=== PATIENT | female | born 1970 ===

== ENCOUNTER 2022-08-20 14:57 | Emergency (ER) | payer MEDICAID, SELFPAY ==
[2022-08-20 15:00] VITALS: BP 132/70; PULSE 90; RESP 18; TEMP 36.7; O2SAT 98; BMI 33.3
--- NOTE | 2022-08-20 15:04 | ED.GENADULT ---
HPI - General Adult General Chief complaint: Back Pain/Injury Stated complaint: Back Pain S/P Injury 08/20/22 Source: patient, RN notes reviewed and old records reviewed Mode of arrival: ambulatory Limitations: no limitations History of Present Illness HPI narrative: 52-year-old female past medical history significant for chronic back pain, spondylolisthesis presents for evaluation of lower back pain. Her pain started 2 days ago when she was ?moving boxes around the house. Her pain is 10/10 to the lower back pain It does not radiate. Denies any numbness, tingling No difficulties bones about some No weakness to lower extremities There was no trauma to back Related Data Previous Rx's Medication Instructions Recorded methocarbamol 750 mg tablet 750 mg PO TID muscle spasms #20 08/20/22 tabs tramadol 50 mg tablet 50 mg PO TID PRN severe pain 08/20/22 (scale score 7-10) #12 tabs Allergies Allergy/AdvReac Type Severity Reaction Status Date / Time No Known Allergies Allergy Verified 08/20/22 15:03 Review of Systems Constitutional: Constitutional: Reports as per HPI, Denies chills, Denies fatigue, Denies fever(s) and Denies headache(s) ENT: Denies headache(s) Cardiovascular: Cardiovascular: Denies chest pain and Denies dyspnea Respiratory: Respiratory: Denies cough and Denies dyspnea Gastrointestinal: Gastrointestinal: Denies abdominal pain, Denies constipation and Denies vomiting Genitourinary: Genitourinary: Denies dysuria Musculoskeletal: Musculoskeletal: Reports back pain Neurologic: Denies headache(s) and Denies focal weakness Endocrine: Endocrine: Denies fatigue Physical Exam ED Vital Signs: Vital Signs - 24 hr 08/20/22 15:00 Temperature 98.0 F Pulse Rate 90 Respiratory Rate 18 Blood Pressure 132/70 Pulse Oximetry 98 Oxygen Delivery Method Room Air BMI result Body Mass Index 33.3 Const General: healthy appearing, comfortable, no acute distress, alert and awake Nutritional Appearance: well nourished Orientation/consciousness: patient oriented x3 HENMT Head: Yes normocephalic and Yes atraumatic Throat: Yes posterior oropharynx normal Eyes Eyelids: Yes eyelids normal Conjunctivae: conjunctivae normal Sclerae: sclerae normal Corneas: corneas normal Pupils: Equal, round and reactive pupils present EOM: EOMs intact bilaterally Neck Neck: Yes full ROM Resp Effort & Inspection: normal respiratory effort, able to speak in complete sentences, no audible wheezes and not labored Auscultation: clear to auscultation bilaterally Cardio Rate: regular rate Rhythm: regular rhythm GI Inspection: No distended Palpation (GI): Soft to palpation, not firm, nontender, no guarding and not rigid Auscultation: normoactive bowel sounds Back/Spine/Pelvis Other: Tenderness across the lumbar paraspinous region without any focal step-offs or deformities. Skin General skin exam: no rashes or lesions noted and elasticity normal Neuro General: patient oriented x3 Cranial nerves: Yes Equal, round and reactive pupils present and Yes Bilaterally intact EOM present Cognition (Neuro): normal cognition Gait exam (Neuro): Normal gait present Motor exam (neuro): 5/5 motor strength present throughout Extrem Other: Moving all extremities well without any obvious deformities Medical Decision Making Medical Decision Making MDM Narrative: [age] year female presents for evaluation of acute on chronic back pain after moving around the house. No trauma, no warning signs for cauda equina syndrome. Will medicate with Toradol IM. Patient be discharged with methocarbamol and tramadol Differential Diagnosis Acute on chronic back pain Muscle spasms Radiculopathy Sciatica Discharge Plan Discharge Clinical Impression: Acute exacerbation of chronic low back pain Patient Disposition: Home, Self-Care Instructions: Back Pain (ED) Additional Instructions: Use ibuprofen/Tylenol for pain. You may use tramadol for more severe or breakthrough pain. This may make you sleepy, did not drink alcohol or drive after taking Use methocarbamol as needed for muscle spasms Prescriptions: New tramadol 50 mg tablet 50 mg PO TID PRN (Reason: severe pain (scale score 7-10)) Qty: 12 0RF methocarbamol 750 mg tablet 750 mg PO TID Qty: 20 0RF
[2022-08-20] MEDS: Ketorolac Tromethamine 30 MG/ML VIAL IM (15:08)
== END 2022-08-20 15:30 | disposition home or self-care (01) ==
LOC: HO.ED 15:15
PROVIDERS: Emergency Provider Emergency Medicine Emergency Medical Services
DX: M54.42 Lumbago with sciatica, left side (principal); M54.41 Lumbago with sciatica, right side
CPT/HCPCS: 96372; 99283; 99284; J1885

== ENCOUNTER 2022-09-05 13:58 | Emergency (ER) | payer MEDICAID, SELFPAY ==
--- NOTE | 2022-09-05 14:03 | ED.BACK ---
HPI - Back Pain/Injury General Chief Complaint: Back Pain/Injury Stated Complaint: back pain for 2 weeks Time Seen by Provider: 09/05/22 14:08 Source: patient, RN notes reviewed and old records reviewed Mode of arrival: ambulatory History of Present Illness HPI Narrative: 52-year-old female with a past medical history of chronic back pain, spondylolisthesis, presenting to the ED complaining of acute on chronic bilateral low back pain x few weeks. Admits symptoms started after moving furniture in home. Reports was seen and treated in our ED recently, admits medications prescribed provided no relief. Denies direct injury/trauma or fall, numbness, tingling, weakness, urinary incontinence/retention, fever, hematuria MD elicited complaint: back pain Related Data Previous Rx's Medication Instructions Recorded methocarbamol 750 mg tablet 750 mg PO TID muscle spasms #20 08/20/22 tabs tramadol 50 mg tablet 50 mg PO TID PRN severe pain 08/20/22 (scale score 7-10) #12 tabs acetaminophen 500 mg tablet 500 mg PO Q6H PRN fever or pain 09/05/22 (Tylenol Extra Strength) #14 tabs cyclobenzaprine 10 mg tablet 10 mg PO TID PRN muscle spasm #10 09/05/22 tabs lidocaine 5 % topical patch 1 patch topical DAILY PRN pain #30 09/05/22 (Lidoderm) ea naproxen 500 mg tablet 500 mg PO BID PRN pain 10 days #20 09/05/22 tabs Allergies Allergy/AdvReac Type Severity Reaction Status Date / Time No Known Allergies Allergy Verified 09/05/22 14:05 Review of Systems Review of Systems: Constitutional: No Fever, No Chills ENT/Mouth: No Ear Pain, No Nasal Congestion, No sore throat, No Rhinorrhea, No Swallowing Difficulty Cardiovascular: No Chest Pain, No SOB Respiratory: No Cough, No Sputum, No Wheezing Gastrointestinal: No Nausea, No Vomiting, No Diarrhea, No Constipation, No Abdominal pain Genitourinary: No Dysuria, No Urinary Frequency, No Hematuria, No Urinary Incontinence/retention, No Flank Pain Musculoskeletal: + joint pain, No Myalgias, No Joint Swelling Skin: No Skin Lesions, No rash Neuro: No Weakness, No Numbness, No Paresthesias Yes all other systems are reviewed and are negative Constitutional: Constitutional: Reports as per HPI [facility] Past Medical History Attestation statement: The following information was validated with the patient. Source: old records reviewed Physical Exam Vital Signs: Vital Signs: Last Vital Signs Temp 98 F 09/05/22 14:05 Pulse 81 09/05/22 14:05 Resp 19 09/05/22 14:05 BP 131/77 09/05/22 14:05 Pulse Ox 99 09/05/22 14:05 BMI result Body Mass Index 34.3 Const: General: cooperative, healthy appearing and no acute distress Orientation/consciousness: patient oriented x3 Limitations: no limitations HEENT: Head: Yes normal to inspection and Yes atraumatic Ears: hearing grossly normal bilaterally General nose exam: Normal external nose present Face and sinus: Yes normal facial exam Eyes: General: appearance normal, both eyes and all related structures EOM: EOMs intact bilaterally Neck: Neck: Yes normal visual inspection and Yes no meningeal signs Resp: Effort & Inspection: normal respiratory effort and no respiratory distress Cardio: Rate: regular rate Heart sounds: S1 normal heart sound present and S2 normal heart sound present GI: Inspection: Yes normal to inspection Palpation (GI): Soft to palpation, nontender, no guarding and not rigid : General: Yes no CVA tenderness Back/Spine/Pelvis: Other: No midline cervical/thoracic/lumbar spinous tenderness/step-off or deformity. + bilateral lumbar MSK tenderness to palpation reproducing subjective complaint. No erythema/ecchymosis Back: no CVA tenderness Skin: Rashes: no rashes Wounds: no wounds Neuro: Other: Strength intact throughout. No saddle anesthesia. Sensation intact to light touch. Neurovascular intact distally General: patient oriented x3, gait normal, tone normal, moves all extremities, no meningeal signs and no focal motor deficits Gait exam (Neuro): Normal gait present Motor exam (neuro): 5/5 motor strength present throughout Extrem: General: Yes normal to inspection Medical Decision Making Medical Decision Making MDM Narrative: 52-year-old female with a past medical history of chronic back pain, spondylolisthesis, presenting to the ED complaining of acute on chronic bilateral low back pain x few weeks. On exam vital signs stable, NAD, nontoxic appearing, no midline spinous tenderness, bilateral MSK lumbar tenderness elicited as above. No red flag symptoms or saddle anesthesia. Ambulating with steady gait. Concern for MSK pain/spasming vs acute on chronic back pain vs radiculopathy. Low suspicion for cauda equina, cord compression, epidural abscess, renal stone/pyelo Patient requesting something stronger than was prescribed last time Plan: IM Toradol, lido patch, p.o. morphine in the ED Will refer pain patient to home health billing specialist, physical therapy and pain management Results discussed with patient including worrisome signs and symptoms and strict return precautions, and when to return to the emergency department. They verbalized understanding and feel safe for discharge at this time. Differential Diagnosis Differential Diagnoses: The differential diagnosis associated with the presentation includes As above Lab Data MDM Lab Attestation statement: I reviewed the patient's lab results. Radiology Impression Discussion of test interpretation with radiology: I have reviewed the radiologist's reading. External Record Review External record reviewed: Inpatient record, Office record, Outpatient record, Prior outpatient labs, Prior outpatient radiology, Primary care record and Outside ED record Tests considered The following testing was considered but not selected: As above Discharge Plan Discharge Clinical Impression: Acute lumbar back pain Patient Disposition: Home, Self-Care Instructions: Acute Low Back Pain (ED), Chronic Back Pain (DC) Additional Instructions: [facility] [address] [place] [id number] Please follow-up with a home health billing specialist and your doctor Your pain is likely musculoskeletal Flexeril is a muscle relaxer, take at night as it makes you drowsy, do not drive, drink alcohol, or operate machinery while taking it Naproxen as an anti-inflammatory / pain medication, take with food Lidoderm patches are numbing patches, apply to painful area In addition take Tylenol at home If symptoms persist or worsen, pain becomes unbearable, you developed urinary retention or incontinence, or weakness return to the ED Prescriptions: New cyclobenzaprine 10 mg tablet 10 mg PO TID PRN (Reason: muscle spasm) Qty: 10 0RF acetaminophen [Tylenol Extra Strength] 500 mg tablet 500 mg PO Q6H PRN (Reason: fever or pain) Qty: 14 0RF lidocaine [Lidoderm] 5 % adhesive patch,medicated 1 patch topical DAILY MDD remove after 12 hours PRN (Reason: pain) Qty: 30 0RF Rx Instructions: leave on most painful area for up to 12 hrs naproxen 500 mg tablet 500 mg PO BID PRN (Reason: pain) 10 Days Qty: 20 0RF No Action tramadol 50 mg tablet 50 mg PO TID PRN (Reason: severe pain (scale score 7-10)) Qty: 12 0RF methocarbamol 750 mg tablet 750 mg PO TID Qty: 20 0RF [place] [facility] [place] [facility] [place] Physician,Unknown J [Primary Care Provider] - Print Language: Danish
[2022-09-05 14:05] VITALS: BP 131/77; PULSE 81; RESP 19; TEMP 36.6; O2SAT 99; BMI 34.3
[2022-09-05] MEDS: Morphine Sulfate Immed Release 15 MG TABLET PO (14:53)
[2022-09-05] MEDS: Ketorolac Tromethamine 30 MG/ML VIAL IM (14:57)
[2022-09-05] MEDS: Lidocaine 4 % Patch ADH..PATCH 1 PATCH TRANSDERMA (14:58)
== END 2022-09-05 15:20 | disposition home or self-care (01) ==
PROVIDERS: Emergency Provider Emergency Medicine
DX: M54.50 Low back pain, unspecified (principal); Z79.899 Other long term (current) drug therapy
CPT/HCPCS: 96372; 99283; 99284; J1885

== ENCOUNTER 2023-08-08 15:50 | Emergency (ER) | payer OTHER, SELFPAY ==
[2023-08-08 15:53] VITALS: BP 124/80; PULSE 99; RESP 20; TEMP 36.3; O2SAT 98; BMI 34.3
--- NOTE | 2023-08-08 16:04 | ED.GENADULT ---
HPI - General Adult General Chief complaint: Skin/Abscess/Foreign Body Stated complaint: body rash Time Seen by Provider: 08/08/23 16:03 Source: patient Mode of arrival: ambulatory Limitations: no limitations History of Present Illness HPI narrative: 52 yold female presents to the ED for itchy rash legs, back, and abdomen for the past 2 weeks. patient denies any swelling of lips, tongue, face, eyes, or uvula. Patient denies any new allergies. Patient denies any fever, chills, chest pain, or shortness of breath. Related Data Previous Rx's ?Medication ?Instructions ?Recorded methocarbamol 750 mg tablet 750 mg PO TID muscle spasms #20 08/20/22 tabs tramadol 50 mg tablet 50 mg PO TID PRN severe pain 08/20/22 (scale score 7-10) #12 tabs acetaminophen 500 mg tablet 500 mg PO Q6H PRN fever or pain 09/05/22 (Tylenol Extra Strength) #14 tabs cyclobenzaprine 10 mg tablet 10 mg PO TID PRN muscle spasm #10 09/05/22 tabs lidocaine 5 % topical patch 1 patch topical DAILY PRN pain #30 09/05/22 (Lidoderm) ea morphine 15 mg immediate release 15 mg PO Q8H PRN pain (scale score 09/05/22 tablet 7-10) 3 days #9 tabs naproxen 500 mg tablet 500 mg PO BID PRN pain 10 days #20 09/05/22 tabs clotrimazole-betamethasone 1 1 appl topical BID 2 weeks #45 08/08/23 %-0.05 % topical cream grams diphenhydramine HCl 25 mg capsule 25 mg PO TID PRN itching 7 days 08/08/23 (Benadryl) #21 caps prednisone 20 mg tablet 40 mg (2 x 20 mg) PO DAILY 5 days 08/08/23 #10 tabs Allergies Allergy/AdvReac Type Severity Reaction Status Date / Time No Known Allergies Allergy Verified 08/08/23 15:57 Review of Systems Review of Systems: ithcing rash Yes all other systems are reviewed and are negative [facility] Social History Social History Advance Directives: No Advance Directives Information Provided: No Physical Exam ED Vital Signs: Vital Signs - 24 hr 08/08/23 15:53 Temperature 97.4 F Pulse Rate 99 Respiratory Rate 20 Blood Pressure 124/80 Pulse Oximetry 98 Oxygen Delivery Method Room Air BMI result Body Mass Index 34.3 Const General: cooperative, healthy appearing, comfortable, no acute distress, well developed, alert and awake Orientation/consciousness: oriented to person, oriented to place, oriented to time and patient oriented x3 HENMT Other: negative for swelling of lips, tongue, face, or uvula. Head: Yes normal to inspection, Yes No palpable skull fracture present, Yes normocephalic and Yes atraumatic Eyes General: appearance normal, both eyes and all related structures Neck Neck: Yes normal visual inspection, Yes full ROM, Yes no lymphadenopathy, Yes no meningeal signs, Yes trachea midline, Yes supple, No anterior neck swelling and No tender Chest Chest palpation & inspection: normal inspection of the chest and normal palpation of entire chest wall Resp Effort & Inspection: normal respiratory effort and able to speak in complete sentences Auscultation: clear to auscultation bilaterally Cardio Jugular venous distension: no JVD Heart sounds: S1 normal heart sound present and S2 normal heart sound present GI Other: circular ithcy rash on abdomen Back/Spine/Pelvis Other: circular itchy rash Skin Other: circular itchy rash. General skin exam: elasticity normal and turgor normal Neuro General: oriented to person, oriented to place, oriented to time, patient oriented x3, gait normal, tone normal, moves all extremities, Normal light touch and pain sensation, no meningeal signs and no focal motor deficits Extrem Other: Bilateral legs has circular scaly ithcy rash General: Yes full ROM and Yes capillary refill normal Psych Appearance: grossly normal, well kempt and not disheveled Course Course Course Narrative: RME: 52 yold female presents to the fungal rash on back, right side of abdomen, and legs. Given fungal cream and did not work and still itching. Medical Decision Making Medical Decision Making MDM Narrative: 52 yold female presents to the ED for itchy rash for two weeks. No signs of anyphylaxis. Patient's states no fever, chills, nausea, or vomitting. Not suspecting cellulitis, tico's Roger syndrome, shingles, or MRSA. Patient discharge with antifungal/steroid rash and steroid pill and benadryl. Allergic reaction vs fungal rash Differential Diagnosis Differential Diagnoses: The differential diagnosis associated with the presentation includes (fungal rash, allergic reaction, dermatitis) Admission/Observation Consideration of admission/observation: Escalation of care including admission/observation considered Independent Historian Clinical information obtained from an independent historian. History obtained from or confirmed by: Other (Patient) External Record Review External record reviewed: Other (Prior visits) Prescription Management I considered prescription management with: Other (fungal/steroid cream, benadryl, prednisone oral) Discharge Plan Discharge Clinical Impression: Tinea corporis, Rash Patient Disposition: Home, Self-Care Instructions: Tinea Corporis (ED), Acute Rash (ED) Additional Instructions: Recommend follow-up with primary care provider. Return to the ED immediately for worsening rash, swelling of lips, swelling of tongue, fever, chills, rash, painful, chest pain, shortness of breath, weakness, dizziness, sensation of throat closing, or any other concerning symptoms. Prescriptions: New clotrimazole-betamethasone 1-0.05 % cream 1 appl topical BID 14 Days Qty: 45 0RF diphenhydramine HCl [Benadryl] 25 mg capsule 25 mg PO TID PRN (Reason: itching) 7 Days Qty: 21 0RF prednisone 20 mg tablet 40 mg PO DAILY 5 Days Qty: 10 0RF No Action tramadol 50 mg tablet 50 mg PO TID PRN (Reason: severe pain (scale score 7-10)) Qty: 12 0RF methocarbamol 750 mg tablet 750 mg PO TID Qty: 20 0RF cyclobenzaprine 10 mg tablet 10 mg PO TID PRN (Reason: muscle spasm) Qty: 10 0RF acetaminophen [Tylenol Extra Strength] 500 mg tablet 500 mg PO Q6H PRN (Reason: fever or pain) Qty: 14 0RF lidocaine [Lidoderm] 5 % adhesive patch,medicated 1 patch topical DAILY MDD remove after 12 hours PRN (Reason: pain) Qty: 30 0RF Rx Instructions: leave on most painful area for up to 12 hrs naproxen 500 mg tablet 500 mg PO BID PRN (Reason: pain) 10 Days Qty: 20 0RF morphine 15 mg tablet 15 mg PO Q8H PRN (Reason: pain (scale score 7-10)) 3 Days Qty: 9 0RF Rx Instructions: Partial Fill upon patient request. Interventions: ED Discharge Assessment Last Done: 08/08/23 16:15 Discharge Date/Time: 08/08/23 16:16 Print Language: Serbian
[2023-08-08 16:15] VITALS: BP 124/80; PULSE 99; RESP 20; TEMP 36.3; O2SAT 98
== END 2023-08-08 16:16 | disposition home or self-care (01) ==
PROVIDERS: Emergency Provider Emergency Medicine
DX: B35.4 Tinea corporis (principal)
CPT/HCPCS: 99282; 99283

== ENCOUNTER 2023-08-23 13:58 | Emergency (ER) | payer OTHER, SELFPAY ==
[2023-08-23 14:23] VITALS: BP 130/77; PULSE 102; RESP 18; TEMP 36.8; O2SAT 97; BMI 33.8
--- NOTE | 2023-08-23 14:31 | ED_ITS ---
HPI - General Adult General Chief complaint: Upper Respiratory Symptoms Stated complaint: Congestion/Rash Time Seen by Provider: 08/23/23 14:47 Source: patient Mode of arrival: ambulatory Limitations: language barrier History of Present Illness HPI narrative: 53-year-old female with no significant past medical history presents emergency department with complaints of a 1 day history of nasal congestion a one-month history of nonspecific rash. She reports she has been evaluated by her primary care provider regarding the rash that she is on Benadryl, prednisone, and a fungal/steroid ointment with moderate relief in itching. She denies any new foods, environmental exposures, or medications. She reports since beginning the prescribed medicines from her PCP that her rash has begun to subside. She states she is begun feeling congested yesterday and denies any cough or increased sputum production. Pertinent positives and negatives discussed in HPI Related Data Previous Rx's ?Medication ?Instructions ?Recorded methocarbamol 750 mg tablet 750 mg PO TID muscle spasms #20 08/20/22 tabs tramadol 50 mg tablet 50 mg PO TID PRN severe pain 08/20/22 (scale score 7-10) #12 tabs acetaminophen 500 mg tablet 500 mg PO Q6H PRN fever or pain 09/05/22 (Tylenol Extra Strength) #14 tabs cyclobenzaprine 10 mg tablet 10 mg PO TID PRN muscle spasm #10 09/05/22 tabs lidocaine 5 % topical patch 1 patch topical DAILY PRN pain #30 09/05/22 (Lidoderm) ea morphine 15 mg immediate release 15 mg PO Q8H PRN pain (scale score 09/05/22 tablet 7-10) 3 days #9 tabs naproxen 500 mg tablet 500 mg PO BID PRN pain 10 days #20 09/05/22 tabs clotrimazole-betamethasone 1 1 appl topical BID 2 weeks #45 08/08/23 %-0.05 % topical cream grams diphenhydramine HCl 25 mg capsule 25 mg PO TID PRN itching 7 days 08/08/23 (Benadryl) #21 caps prednisone 20 mg tablet 40 mg (2 x 20 mg) PO DAILY 5 days 08/08/23 #10 tabs guaifenesin 400 mg tablet 400 mg PO QID PRN congestion 5 08/23/23 days #20 tabs Allergies Allergy/AdvReac Type Severity Reaction Status Date / Time No Known Allergies Allergy Verified 08/23/23 14:29 Review of Systems Review of Systems: Yes all other systems are reviewed and are negative [facility] Social History Social History Advance Directives: No Advance Directives Information Provided: Yes Physical Exam ED Vital Signs: Vital Signs - 24 hr 08/23/23 14:23 08/23/23 15:43 08/23/23 15:49 Temperature 98.2 F 98.1 F 98.1 F Pulse Rate 102 H 99 99 Respiratory Rate 18 16 16 Blood Pressure 130/77 113/77 113/77 Pulse Oximetry 97 97 97 Oxygen Delivery Method Room Air Room Air BMI result Body Mass Index 33.8 Nursing notes and vital signs reviewed. GENERAL APPEARANCE: A&0 x 4, generally well appearing, no acute distress HENMT: Normal to inspection, atraumatic, face symmetrical. Normal external ears, nose, and oropharynx clear. EYE: PERRLA, EOM intact, structures appear normal NECK: Supple without stiffness or restricted ROM. HEART: Normal rate and regular rhythm, normal S1/S2, no M/R/G LUNGS: LS CTA, moving air well. Able to speak in complete sentences. No crackles, wheezes, or rhonchi auscultated BACK: No CVAT, no obvious deformity EXTREMITIES: Moving all extremities without difficulty. Normal capillary refill. NEUROLOGICAL: Alert and oriented, moving all 4 extremities with equal strength. CN not formally tested but appearing grossly intact. Observed to ambulate with normal gait. Cognition normal SKIN: Warm and dry without any lesions or visible sores. Urticarial rash noted on patient's back as well as posterior upper legs. Course Course Course Narrative: This is an RME: Additional HPI, ROS, PE not included below will be deferred to primary provider. This is a 53-year-old female presenting to the emergency department for ongoing rash x2 weeks as well as congestion. Plan: Swabs Medical Decision Making Medical Decision Making MDM Narrative: Old records reviewed for previous imaging, lab studies, ECGs, and notes. Patient was assessed the emergency department with no acute distress or toxicity noted. Nasal serology negative for COVID, flu, and RSV and patient's condition is consistent with an acute viral syndrome. Guaifenesin symptoms preferred pharmacy for further management of congestion. Patient's rash appears nonspecific with no suspicion for shingles or insect bites. Patient is safe for discharge at this time with plan for [id number] Tylenol and/or NSAID such as ibuprofen or naproxen for fever/discomfort with dosing as per packaging. HPI, PE, diagnostics, and plan discussed with patient and family with no unanswered questions at this time. Strict return precautions given to return to the emergency department with new, worsening, or concerning emergent symptoms. Recommended to follow-up with there primary care provider in 24-48 hours for further treatment and management. Differential Diagnosis Differential Diagnoses: The differential diagnosis associated with the presentation includes But not limited to contact dermatitis, psoriasis, eczema, anaphylaxis, shingles, insect bites, viral syndrome, scarlet fever, sepsis, malignancy Lab Data MDM Lab Attestation statement: I reviewed the patient's lab results. Labs: Lab Results 08/23/23 Range/Units 14:40 Influenza Type A (PCR) NEGATIVE (Negative) Influenza Type B (PCR) NEGATIVE (Negative) RSV RNA Qual (PCR) NEGATIVE (Negative) SARS-CoV-2 RNA (RT-PCR) NEGATIVE (Negative) Discharge Plan Discharge Clinical Impression: Upper respiratory infection, Rash and nonspecific skin eruption Patient Disposition: Home, Self-Care Instructions: Upper Respiratory Infection (ED), Acute Rash (ED) Prescriptions: New guaifenesin 400 mg tablet 400 mg PO QID PRN (Reason: congestion) 5 Days Qty: 20 0RF No Action tramadol 50 mg tablet 50 mg PO TID PRN (Reason: severe pain (scale score 7-10)) Qty: 12 0RF methocarbamol 750 mg tablet 750 mg PO TID Qty: 20 0RF clotrimazole-betamethasone 1-0.05 % cream 1 appl topical BID 14 Days Qty: 45 0RF diphenhydramine HCl [Benadryl] 25 mg capsule 25 mg PO TID PRN (Reason: itching) 7 Days Qty: 21 0RF prednisone 20 mg tablet 40 mg PO DAILY 5 Days Qty: 10 0RF cyclobenzaprine 10 mg tablet 10 mg PO TID PRN (Reason: muscle spasm) Qty: 10 0RF acetaminophen [Tylenol Extra Strength] 500 mg tablet 500 mg PO Q6H PRN (Reason: fever or pain) Qty: 14 0RF lidocaine [Lidoderm] 5 % adhesive patch,medicated 1 patch topical DAILY MDD remove after 12 hours PRN (Reason: pain) Qty: 30 0RF Rx Instructions: leave on most painful area for up to 12 hrs naproxen 500 mg tablet 500 mg PO BID PRN (Reason: pain) 10 Days Qty: 20 0RF morphine 15 mg tablet 15 mg PO Q8H PRN (Reason: pain (scale score 7-10)) 3 Days Qty: 9 0RF Rx Instructions: Partial Fill upon patient request. Referrals: Chioma Luna PA-C [Primary Care Provider] - Interventions: ED Discharge Assessment Last Done: 08/23/23 15:49 Discharge Date/Time: 08/23/23 15:50 Print Language: Dutch
[2023-08-23 15:25] LABS: Influenza A PCR NEGATIVE (Negative); Influenza B PCR NEGATIVE (Negative); Resp Syncy Virus RNA Qual PCR NEGATIVE (Negative); SARS COV2 PCR INHOUSE NEGATIVE (Negative)
[2023-08-23 15:43] VITALS: BP 113/77; PULSE 99; RESP 16; TEMP 36.7; O2SAT 97
[2023-08-23 15:49] VITALS: BP 113/77; PULSE 99; RESP 16; TEMP 36.7; O2SAT 97
== END 2023-08-23 15:50 | disposition home or self-care (01) ==
PROVIDERS: Physician Assistant Medical; Emergency Provider Emergency Medicine Emergency Medical Services; PCP Physician Assistant
DX: J06.9 Acute upper respiratory infection, unspecified (principal); R21 Rash and other nonspecific skin eruption; Z11.52 Encounter for screening for COVID-19; Z20.828 Contact with and (suspected) exposure to other viral communicable diseases
CPT/HCPCS: 0241U; 99283

== ENCOUNTER 2024-10-15 17:14 | Emergency (ER) | payer BC, SELFPAY ==
[2024-10-15 18:10] VITALS: BP 119/71; PULSE 88; RESP 18; TEMP 36.8; O2SAT 100; BMI 31.1
--- NOTE | 2024-10-15 18:13 | ED_ITS ---
HPI - Female Genitourinary General Chief complaint: Urogenital-Female Stated complaint: vaginal infection Time Seen by Provider: 10/15/24 18:37 Source: patient Limitations: language barrier History of Present Illness ED Provider: Chelle Choen PA-C HPI Narrative: 54-year-old female presents with vaginal discharge x3 days. Patient states it has an odor, there was no associated pruritus. Denies abdominal pain, nausea, vomiting, dysuria, hematuria or risk for STD. Denies use of recent antibiotics. Related Data Previous Rx's ?Medication ?Instructions ?Recorded methocarbamol 750 mg tablet 750 mg PO TID muscle spasms #20 08/20/22 tabs tramadol 50 mg tablet 50 mg PO TID PRN severe pain 08/20/22 (scale score 7-10) #12 tabs acetaminophen 500 mg tablet 500 mg PO Q6H PRN fever or pain 09/05/22 (Tylenol Extra Strength) #14 tabs cyclobenzaprine 10 mg tablet 10 mg PO TID PRN muscle spasm #10 09/05/22 tabs lidocaine 5 % topical patch 1 patch topical DAILY PRN pain #30 09/05/22 (Lidoderm) ea morphine 15 mg immediate release 15 mg PO Q8H PRN pain (scale score 09/05/22 tablet 7-10) 3 days #9 tabs naproxen 500 mg tablet 500 mg PO BID PRN pain 10 days #20 09/05/22 tabs clotrimazole-betamethasone 1 1 appl topical BID 2 weeks #45 08/08/23 %-0.05 % topical cream grams diphenhydramine HCl 25 mg capsule 25 mg PO TID PRN itching 7 days 08/08/23 (Benadryl) #21 caps prednisone 20 mg tablet 40 mg (2 x 20 mg) PO DAILY 5 days 08/08/23 #10 tabs guaifenesin 400 mg tablet 400 mg PO QID PRN congestion 5 08/23/23 days #20 tabs Allergies Allergy/AdvReac Type Severity Reaction Status Date / Time No Known Allergies Allergy Verified 10/15/24 18:12 Review of Systems Review of Systems: Yes all other systems are reviewed and are negative Constitutional: Constitutional: Denies fatigue and Denies fever(s) Cardiovascular: Cardiovascular: Denies chest pain and Denies dyspnea Respiratory: Respiratory: Denies cough and Denies dyspnea Gastrointestinal: Gastrointestinal: Reports abdominal pain, Denies constipation, Denies GI cramping, Denies diarrhea, Denies nausea and Denies vomiting Genitourinary: Genitourinary: Denies hematuria, Denies dysuria, Denies pelvic pain, Reports vaginal discharge and Reports vaginal odor Musculoskeletal: Musculoskeletal: Denies back pain Endocrine: Endocrine: Denies fatigue PMF Past Medical History Attestation statement: The following information was validated with the patient. Social History Social History Advance Directives: No Advance Directives Information Provided: No Physical Exam Vital Signs: Vital Signs: Last Vital Signs Temp 97.9 F 10/15/24 20:19 Pulse 74 10/15/24 20:19 Resp 20 10/15/24 20:19 BP 116/72 10/15/24 20:19 Pulse Ox 99 10/15/24 20:19 O2 Del Method Room Air 10/15/24 20:19 BMI result Body Mass Index 31.1 Const: Other: Alert well-appearing Orientation/consciousness: patient oriented x3 Resp: Effort & Inspection: normal respiratory effort Cardio: Other: Normal peripheral perfusion : Other: Deferred Skin: Other: Warm dry no rash Neuro: General: patient oriented x3, gait normal, no focal motor deficits and CN's II-XI intact bilaterally Psych: Other: Cooperative Course Course Course Narrative: RME performed by Bianca Joshi PA-C. Patient is a 54 year old assigned f emale at presenting to the emergency department with vaginal discharge. Patient states that she initially had clear discharge and now it is more yellow. Detailed physical exam and review of systems are deferred to the jewelry consultant. Labs ordered. Patient placed back in the waiting room pending room availability and results. Medical Decision Making Medical Decision Making MDM Narrative: 54-year-old female presents with vaginal discharge x3 days. Patient states it has an odor, there was no associated pruritus. Denies abdominal pain, nausea, vomiting, dysuria, hematuria or risk for STD. Denies use of recent antibiotics. No chronic issues History: Per patient I have considered the following differential diagnoses: Candidal infection, BV, trich, cervicitis, TOA, PID, UTI Plan: Urine sample, GC chlamydia and BV panel are all in process. Patient has no risk factors for STDs, GC chlamydia in the BV panel we will not return overnight, we thought that they would, nursing verified with the lab. Urine is not infected. I explained to the patient she be contacted tomorrow, and a prescription we will be sent to her pharmacy. She does not require a pelvic exam, she has no risk for STD she also has no abdominal pain to suggest a TOA/PID/cervicitis I have independently reviewed the following tests: Labs: Urine not infected Lab Data Labs: Lab Results 10/15/24 Range/Units 18:26 Urine Color Yellow Urine Appearance Clear Urine pH 5.5 (5.0-9.0) Ur Specific [place] 1.010 (1.005-1.025) Urine Protein Negative (Neg-Trace) mg/dL Urine Glucose (UA) Negative (Negative) mg/dL Urine Ketones Negative (Negative) mg/dL Urine Blood Negative (Negative) Urine Nitrite Negative (Negative) Ur Leukocyte Esterase Small (1+) H (Negative) Urine RBC 0-2 (0-2) /HPF Urine WBC 0-5 (0-5) /HPF Ur Squamous Epith Cells 0-2 (0-2) /HPF Urine Bacteria None Seen (None Seen) Hyaline Casts 0-2 (0-2) /LPF Discharge Plan Discharge Clinical Impression: Vaginitis Patient Disposition: Home, Self-Care Instructions: Vaginal Discharge (ED) Additional Instructions: You have many lab tests pending, they will result tomorrow, you will be contacted with the results, if you require treatment a prescription we will be sent to your pharmacy. Your urinalysis resulted you do not have a urinary tract infection. Prescriptions: No Action tramadol 50 mg tablet 50 mg PO TID PRN (Reason: severe pain (scale score 7-10)) Qty: 12 0RF methocarbamol 750 mg tablet 750 mg PO TID Qty: 20 0RF clotrimazole-betamethasone 1-0.05 % cream 1 appl topical BID 14 Days Qty: 45 0RF diphenhydramine HCl [Benadryl] 25 mg capsule 25 mg PO TID PRN (Reason: itching) 7 Days Qty: 21 0RF prednisone 20 mg tablet 40 mg PO DAILY 5 Days Qty: 10 0RF cyclobenzaprine 10 mg tablet 10 mg PO TID PRN (Reason: muscle spasm) Qty: 10 0RF acetaminophen [Tylenol Extra Strength] 500 mg tablet 500 mg PO Q6H PRN (Reason: fever or pain) Qty: 14 0RF lidocaine [Lidoderm] 5 % adhesive patch,medicated 1 patch topical DAILY MDD remove after 12 hours PRN (Reason: pain) Qty: 30 0RF Rx Instructions: leave on most painful area for up to 12 hrs naproxen 500 mg tablet 500 mg PO BID PRN (Reason: pain) 10 Days Qty: 20 0RF morphine 15 mg tablet 15 mg PO Q8H PRN (Reason: pain (scale score 7-10)) 3 Days Qty: 9 0RF Rx Instructions: Partial Fill upon patient request. guaifenesin 400 mg tablet 400 mg PO QID PRN (Reason: congestion) 5 Days Qty: 20 0RF Print Language: [place]
[2024-10-15 18:35] LABS: Appearance Urine Clear; Color Urine Yellow; Glucose Urine UA Negative (Negative); Leukocyte Esterase Urine Small (1+) (Negative); Nitrite Urine Negative (Negative); PH 5.5 (5.0-9.0); UMIC TRIGGER UACC YES; Urine Blood Negative (Negative); Urine Ketones Negative (Negative); Urine Protein Negative (Neg-Trace)
[2024-10-15 18:47] LABS: Bacteria Urine None Seen (None Seen); Hyaline Casts Urine 0-2 /LPF (0-2); RBC Urine 0-2 /HPF (0-2); Squamous Epithelial Cell Urine 0-2 /HPF (0-2); UACC Culture Trigger YES; WBC Urine 0-5 /HPF (0-5)
[2024-10-15 20:19] VITALS: BP 116/72; PULSE 74; RESP 20; TEMP 36.6; O2SAT 99
[2024-10-15 21:37] VITALS: BP 112/70; PULSE 76; RESP 17; TEMP 36.7; O2SAT 100
[2024-10-16 02:42] LABS: CT PCR NOT DETECTED (Not Detect.); NG PCR NOT DETECTED (Not Detect.)
[2024-10-16 11:30] LABS: Bacterial Vaginosis PCR NEGATIVE (Negative); Candida Group PCR NOT DETECTED (Not Detect); Candida glab krusei PCR NOT DETECTED (Not Detect); Trichomonas vaginalis PCR NOT DETECTED (Not Detect)
== END 2024-10-15 21:42 | disposition home or self-care (01) ==
PROVIDERS: Physician Assistant Medical; Emergency Provider Internal Medicine; PCP Physician Assistant
DX: N76.0 Acute vaginitis (principal)
CPT/HCPCS: 81001; 81515; 87086; 87147; 87491; 87591; 99283; 99284